=== PATIENT | male | born 1990 | race Caucasian/White ===

== ENCOUNTER 2022-09-07 18:42 | Emergency (ER) | payer MEDICAID ==
[~2022-09-07] VITALS: Ht 167.6 cm; Wt 77.1 kg
[2022-09-07 19:19] VITALS: BP 141/73
--- NOTE | 2022-09-07 19:23 | NUR ---
TO LOBBY A/W BED AMBULATORY
--- NOTE | 2022-09-07 20:30 | NUR ---
DR HARDY EXAMINING PT IN CHAIR
[2022-09-07] MEDS ORDERED: IBUP-2213 PO (20:48)
[2022-09-07] MEDS ORDERED: ACET-8386 PO (20:55)
[2022-09-07 21:10] VITALS: BP 141/73
== END 2022-09-07 21:10 | disposition home or self-care (01) ==
LOC: MED 18:42
DX: S61.315A Laceration without foreign body of left ring finger with damage to nail, initial encounter (principal); W22.8XXA Striking against or struck by other objects, initial encounter; Y93.89 Activity, other specified; Y92.89 Other specified places as the place of occurrence of the external cause; Y99.8 Other external cause status
CPT/HCPCS: 73140; 99283